=== PATIENT | female | born 1995 | race Caucasian/White ===

== ENCOUNTER 2025-02-21 18:33 | Inpatient (IN) | payer OTHER ==
[~2025-02-21] VITALS: Ht 165.1 cm; Wt 72.0 kg
[2025-02-21] MEDS ORDERED: DICYCLOMINE HCL 10 MG CAPSULE PO PRN (22:00)
[2025-02-21] MEDS ORDERED: ONDANSETRON HCL 4 MG/2 ML VIAL IVP PRN (22:00)
[2025-02-21 22:11] LABS: BASOPHILS % (AUTO) 0.6 % (0.0-2.0); EOSINOPHILS % (AUTO) 0.1 % (1.0-6.0); HEMATOCRIT 43.1 % (36-46); HEMOGLOBIN 14.5 g/dL (12.0-16.0); LYMPHOCYTES # (AUTO) 1.7 K/uL (1.0-4.8); LYMPHOCYTES % (AUTO) 16.2 % (22.0-44.0); MEAN CORPUSCULAR HEMOGLOBIN 29.4 pg (26.0-34.0); MEAN CORPUSCULAR HGB CONC 33.7 G/dL (31.0-37.0); MEAN CORPUSCULAR VOLUME 87 fL (80-100); MONOCYTES # (AUTO) 0.8 K/uL (0.1-1.0); MONOCYTES % (AUTO) 7.1 % (2.0-9.0); NEUTROPHILS # (AUTO) 8.1 K/uL (1.8-7.7); PLATELET COUNT (AUTO) 239 K/uL (150-450); RED BLOOD CELL COUNT(AUTO) 4.93 MIL/uL (4.00-5.20); RED CELL DISTRIBUTION WIDTH 13.3 % (11.5-14.5); WHITE BLOOD COUNT (AUTO) 10.6 K/uL (4.5-11.0)
[2025-02-21 22:20] LABS: ANION GAP 7 mmol/L (8-16); CALCIUM, TOTAL 9.5 mg/dL (8.8-10.5); CARBON DIOXIDE 29 mmol/L (22-29); CHLORIDE 101 mmol/L (98-107); CREATININE 0.63 mg/dL (0.60-1.30); GLOMERULAR FILTR. RATE CALC > 60 mL/min (>60); GLUCOSE,RANDOM 92 mg/dL (70-110); POTASSIUM 3.7 mmol/L (3.5-5.1); SODIUM SERUM 137 mmol/L (136-145); UREA NITROGEN, BLOOD 9 mg/dL (7-18)
[2025-02-21 22:28] LABS: ALBUMIN 3.7 g/dL (3.4-5.0); BILIRUBIN,DIRECT 0.2 mg/dL (0.00-0.20); BILIRUBIN,TOTAL 1.1 mg/dL (0.1-1.0); TOTAL PROTEIN, SERUM 7.6 g/dL (6.4-8.2)
[2025-02-21 23:34] VITALS: BP 117/67; PULSE 78; RESP 18; TEMP 97.9; O2SAT 96
[2025-02-22] MEDS: HEPARIN SODIUM,PORCINE 5,000 UNITS/ML VIAL SQ SCH (00:18)
[2025-02-22 04:51] VITALS: BP 114/76; PULSE 79; RESP 18; TEMP 97.5; O2SAT 97
[2025-02-22 07:34] LABS: BASOPHILS % (AUTO) 0.3 % (0.0-2.0); EOSINOPHILS % (AUTO) 0.6 % (1.0-6.0); HEMATOCRIT 41.3 % (36-46); HEMOGLOBIN 13.9 g/dL (12.0-16.0); LYMPHOCYTES # (AUTO) 1.7 K/uL (1.0-4.8); LYMPHOCYTES % (AUTO) 21.1 % (22.0-44.0); MEAN CORPUSCULAR HEMOGLOBIN 29.4 pg (26.0-34.0); MEAN CORPUSCULAR HGB CONC 33.8 G/dL (31.0-37.0); MEAN CORPUSCULAR VOLUME 87 fL (80-100); MONOCYTES # (AUTO) 0.6 K/uL (0.1-1.0); NEUTROPHILS # (AUTO) 5.6 K/uL (1.8-7.7); PLATELET COUNT (AUTO) 221 K/uL (150-450); RED BLOOD CELL COUNT(AUTO) 4.75 MIL/uL (4.00-5.20); RED CELL DISTRIBUTION WIDTH 13.4 % (11.5-14.5)
[2025-02-22 07:47] LABS: ANION GAP 9 mmol/L (8-16); CALCIUM, TOTAL 8.9 mg/dL (8.8-10.5); CARBON DIOXIDE 28 mmol/L (22-29); CHLORIDE 102 mmol/L (98-107); CREATININE 0.51 mg/dL (0.60-1.30); GLOMERULAR FILTR. RATE CALC > 60 mL/min (>60); GLUCOSE,RANDOM 94 mg/dL (70-110); POTASSIUM 3.3 mmol/L (3.5-5.1); SODIUM SERUM 139 mmol/L (136-145); UREA NITROGEN, BLOOD 9 mg/dL (7-18)
[2025-02-22] MEDS: DOCUSATE SODIUM 100 MG CAPSULE PO SCH (08:09)
[2025-02-22 08:56] VITALS: BP 118/77; PULSE 76; RESP 18; TEMP 97.9; O2SAT 97
[2025-02-22] MEDS: HydrOXYzine HCL 25 MG TABLET PO PRN (10:46)
[2025-02-22 18:37] LABS: APPEARANCE,URINE CLEAR (CLEAR); BILIRUBIN,URINE NEGATIVE (NEGATIVE); COLOR,URINE LIGHT YELLOW (YELLOW); GLUCOSE, URINE (UA) NEGATIVE (NEGATIVE); LEUKOCYTE ESTERASE ,URINE NEGATIVE (NEGATIVE); NITRATE,URINE NEGATIVE (NEGATIVE); OCCULT BLOOD,URINE NEGATIVE (NEGATIVE); PH,URINE 6.5 (5.0-8.0); PH,URINE DRUG SCREEN 6.5 (5.0-8.0); PROTEIN,URINE NEGATIVE (NEGATIVE); SPECIFIC GRAVITIY, URINE 1.018 (1.003-1.030); UROBILINOGEN,URINE <=1.0 mg/dL (<=1.0)
[2025-02-22 18:44] LABS: ALCOHOL, URINE DRUG SCREEN NEGATIVE (NEGATIVE); AMPHET/METH SCREEN,URINE POSITIVE (NEGATIVE); BARBITURATE SCREEN, URINE NEGATIVE (NEGATIVE); BENZODIAZEPINES SCREEN,URINE NEGATIVE (NEGATIVE); CANNABINOID SCREEN,URINE NEGATIVE (NEGATIVE); COCAINE SCREEN,URINE NEGATIVE (NEGATIVE); METHADONE SCREEN, URINE NEGATIVE (NEGATIVE); OPIATE SCREEN,URINE NEGATIVE (NEGATIVE); PHENCYCLIDINE SCREEN,URINE NEGATIVE (NEGATIVE)
[2025-02-22 20:15] VITALS: BP 129/88; PULSE 88; RESP 20; TEMP 98.4; O2SAT 97
[2025-02-22] MEDS: MELATONIN 3 MG TABLET PO SCH (22:00)
[2025-02-23 04:40] VITALS: BP 118/73; PULSE 75; RESP 20; TEMP 97.9; O2SAT 96
[2025-02-23] MEDS: ACETAMINOPHEN 325 MG TABLET PO PRN (04:50)
[2025-02-23 07:45] VITALS: BP 111/67; PULSE 77; RESP 18; TEMP 98.1; O2SAT 100
[2025-02-23] MEDS: POTASSIUM CHLORIDE 20 MEQ ER TABLET PO ONE (10:36)
[2025-02-23] MEDS: BUPRENORPHINE HCL/NALOXONE HCL 2-0.5 MG SUBLINGUAL TABLET SL SCH (10:45)
[2025-02-23 20:22] VITALS: BP 113/66; PULSE 89; RESP 20; TEMP 98.1; O2SAT 97
[2025-02-23] MEDS: MELATONIN 3 MG TABLET PO SCH (20:48)
[2025-02-23] MEDS: TraZODone HCL 50 MG TABLET PO PRN (22:05)
[2025-02-24] MEDS: HALOPERIDOL LACTATE 5 MG/ML VIAL IM ONE
[2025-02-24 04:14] VITALS: BP 120/70; PULSE 87; RESP 20; TEMP 97.9; O2SAT 99
[2025-02-24 08:09] VITALS: BP 119/76; PULSE 86; RESP 18; TEMP 98.1; O2SAT 95
[2025-02-24] MEDS ORDERED: BUPR1TAB45 SL ×2 (10:35→18:53)
[2025-02-24] MEDS ORDERED: MELA5TAB40 PO (10:36)
[2025-02-24] MEDS ORDERED: HYDR-4527 PO (10:36)
[2025-02-24] MEDS: POTASSIUM CHLORIDE 20 MEQ ER TABLET PO ONE (11:40)
== END 2025-02-24 14:24 | DRG 92 ==
LOC: EMS 18:33 → EDH 21:49 → 6S 23:28
PROVIDERS: ADMIT Internal Medicine; ATTEND Internal Medicine
DX: G92.9 Unspecified toxic encephalopathy (principal); F11.13 Opioid abuse with withdrawal; I73.89 Other specified peripheral vascular diseases; F41.9 Anxiety disorder, unspecified; J45.909 Unspecified asthma, uncomplicated; F17.210 Nicotine dependence, cigarettes, uncomplicated
CPT/HCPCS: 80048; 80076; 80307; 81003; 83735; 84132; 84702; 85025; 93005; 99285; J1644

== ENCOUNTER 2025-02-24 21:16 | Emergency (ER) | payer OTHER ==
[~2025-02-24] VITALS: Ht 165.1 cm; Wt 81.8 kg
[~2025-02-24 21:16] MED LIST: BUPR1TAB45 SL; HYDR-4527 PO; MELA5TAB40 PO
[2025-02-24 22:55] VITALS: BP 117/74; PULSE 90; RESP 17; TEMP 98.2; O2SAT 100
[2025-02-24] MEDS: BUPRENORPHINE HCL/NALOXONE HCL 2-0.5 MG SUBLINGUAL TABLET SL ONE (23:19)
== END 2025-02-24 23:50 ==
LOC: EMS 21:16
DX: J45.909 Unspecified asthma, uncomplicated (principal); Z76.0 Encounter for issue of repeat prescription; Z02.89 Encounter for other administrative examinations; F17.210 Nicotine dependence, cigarettes, uncomplicated
CPT/HCPCS: 99283; J0571